=== PATIENT | male | born 2000 | race African-American/Black ===

== ENCOUNTER 2022-01-14 02:39 | Emergency (ER) | payer MEDICAID ==
[~2022-01-14] VITALS: Ht 177.8 cm; Wt 65.8 kg
[2022-01-14 02:41] VITALS: BP 130/76
== END 2022-01-14 05:07 | disposition home or self-care (01) ==
LOC: ER 02:39
DX: M79.671 Pain in right foot (principal)
CPT/HCPCS: 73630